=== PATIENT | male | born 2000 | race Caucasian/White ===

== ENCOUNTER 2018-05-15 08:09 | Emergency (ER) | payer OTHER ==
[~2018-05-15] VITALS: Ht 165.1 cm; Wt 55.3 kg
[2018-05-15 08:17] VITALS: Ht 165.1 cm; Wt 55.3 kg
[2018-05-15 08:43] LABS: microscopic required? NO
[2018-05-15 08:51] LABS: UA SPECIFIC GRAVITY 1.015 (1.005-1.035); urine erythrocyte NEGATIVE (NEGATIVE)
[2018-05-15 10:27] VITALS: BP 113/74
== END 2018-05-15 10:28 | disposition home or self-care (01) ==
LOC: ED 08:09
PROVIDERS: Emergency Medicine
DX: M54.9 Dorsalgia, unspecified (principal); N50.812 Left testicular pain
CPT/HCPCS: 87491; 87591

== ENCOUNTER 2018-06-22 16:51 | Emergency (ER) | payer OTHER ==
[~2018-06-22] VITALS: Ht 167.6 cm; Wt 55.8 kg
[2018-06-22 16:56] VITALS: Ht 167.6 cm; Wt 55.8 kg
[2018-06-22 17:36] VITALS: BP 138/77
== END 2018-06-22 17:36 | disposition home or self-care (01) ==
LOC: ED 16:51
DX: R21 Rash and other nonspecific skin eruption (principal)

== ENCOUNTER 2018-07-05 19:44 | Emergency (ER) | payer OTHER ==
[~2018-07-05] VITALS: Ht 165.1 cm; Wt 55.9 kg
[2018-07-05 20:17] VITALS: Ht 165.1 cm; Wt 55.9 kg
[2018-07-05 21:41] LABS: PLATELET COUNT 184 x10^3mcL (130-400); RED CELL DISTRIBUTION WIDTH 13.6 % (11.5-14.5)
[2018-07-05 22:12] LABS: BAND NEUTROPHIL 5 % (0-10); MONOCYTE 9 % (0-7); SEGMENTED NEUTROPHILS 61 % (37-75)
[2018-07-05 22:14] LABS: PLATELET MORPHOLOGY PLATELETS NORMAL; rbc morphology (normal/abnorm) NORMAL (NORMAL)
[2018-07-05 22:17] VITALS: BP 137/88
== END 2018-07-05 22:17 | disposition home or self-care (01) ==
LOC: ED 19:44
PROVIDERS: Emergency Medicine
DX: R21 Rash and other nonspecific skin eruption (principal)
CPT/HCPCS: 82785

== ENCOUNTER 2018-08-04 12:30 | Emergency (ER) | payer OTHER | END 2018-08-04 14:51 | disposition home or self-care (01) | LOC: ED 12:30 ==

== ENCOUNTER 2019-03-18 11:47 | Emergency (ER) | payer OTHER ==
[~2019-03-18] VITALS: Ht 167.6 cm; Wt 54.0 kg
[2019-03-18 11:58] VITALS: Ht 167.6 cm; Wt 54.0 kg
[2019-03-18 13:58] VITALS: BP 126/57
[2019-03-19 07:06] LABS: RAPID PLASMA REAGIN Reactive (Non Reactive)
== END 2019-03-18 14:05 | disposition home or self-care (01) ==
LOC: ED 11:47
PROVIDERS: Emergency Medicine
DX: Z11.3 Encounter for screening for infections with a predominantly sexual mode of transmission (principal)
CPT/HCPCS: 36415